=== PATIENT | female | born 1955 | race Caucasian/White ===

== ENCOUNTER 2020-08-18 15:36 | Inpatient (IN) | payer OTHER ==
[~2020-08-18] VITALS: Ht 162.6 cm; Wt 111.1 kg
--- NOTE | ~2020-08-18 | EMS ---
[facility] [address] [place] [address] EMS Patient Care Report Name: HUA ROTHMAN Room #: REG FILIBERTO Cason#: [id number] Admission: 08/18/20 Attend Phys: Discharge: Date of : 53 Report #: [id number] THIS REPORT FOR: //name// Report Transmitted: 08/18/2020 16:05 EMS Care Summary [facility] MED-ACT Incident [id number] @ 08/18/2020 15:00 Incident Location [id number] [place] [address] Patient HUA ROTHMAN Female, 65 Years 1955 [address] [facility] Marilee Lockhart [address] [place] [id number] Patient History Diabetes,Hypertension (HTN),TIA, Patient Allergies No known allergies, Patient Medications Unknown, Chief Complaint Aphasia Disposition Transported No Lights/[place] Dispatch Reason Heat/Cold Exposure Transported To [facility] Narrative History- Pt is found sitting in a chair in the office of [employer] talking with [employer] and does not appear to be in any distress. S47 states that they just arrived on scene but the pt is having a hard time gathering her [facility] [address] [place] [address] EMS Patient Care Report Name: HUA ROTHMAN Room #: REG FILIBERTO Cason#: [id number] Admission: 08/18/20 Attend Phys: Discharge: Date of : 53 Report #: [id number] thoughts and expressing what she wants to say. Pt states that she knows where she is but is unable to say the name of the place or what they sell. She becomes increasingly frustrated that she is unable to say what she wants. Pt is able to complete the stroke scale with no issues but due to the pt's aphasia a code stroke is called anyways. Pt is unable to tell us anything about her medical history or what hospital she usually goes to but knows the hospital is on [address] When [facility] is mentioned she states yes that's it. Pt is aware that she is having trouble and states that it started when she arrived at the store. The employees state that they noticed the pt not acting correctly when shortly after she arrived and called 911. Pt denies any pain or other complaints and agrees to go to [facility] since that is the closest hospital. Treatment- Vitals. 12 lead. IV. Pt is transported to [facility] and is taken directly to CT. Report given to the RN and Initial Vitals @15:20MI Suspected: false @15:33P: 99,R: 16,BP: 179/90,GCS: 15,Revised Trauma: 12, @15:22P: 91,R: 16,BP: 166/103,Pain: 0/10,GCS: 15,Temp: 97.5F,Glucose: 296,SpO2: 99,Revised Trauma: 12, Assessments @15:20MENTAL:Confused,Person Oriented,Time Oriented,Event Oriented,SKIN:HEENT:Eyes: Left Pupil: 4-mm,Eyes: Right Pupil: 4-mm,Head/Face: No Abnormalities,Neck/Airway: No Abnormalities,LUNG SOUNDS:General: No Abnormalities,ABDOMEN:General: No Abnormalities,PELVIS//GI:EXTREMITIES:Left Arm: Other,Right Arm: No Abnormalities,Left Leg: No Abnormalities,Right Leg: No Abnormalities,PULSE:Radial: 2+ Normal,NEURO:Other, Impression Stroke Procedures @15:25Saline Lock 10cc (20 ga) Site: Radial-LeftResponse: UnchangedSucceeded@15:2012-Lead ECGResponse: UnchangedSucceeded@15:20Saline Lock 0cc (20 ga) Site: Hand-RightResponse: UnchangedFailed Timeline 14:58,Call Received 14:58,Psap Call 15:00,Dispatched 15:00,En Route 15:06,On Scene 15:08,At Patient 15:20,Saline Lock 0cc 20 ga Site: Hand-Right,Response: UnchangedFailed, 15:20,12-Lead ECG,Response: UnchangedSucceeded, [place] [address] EMS Patient Care Report Name: HUA ROTHMAN Room #: CHI Cason#: [id number] Admission: 08/18/20 Attend Phys: Discharge: Date of : 53 Report #: [id number] 15:20,BP: / M,PULSE: ,RR: R,SPO2: Ox,ETCO2: ,BG: ,PAIN: ,GCS: , 15:22,BP: 166/103 M,PULSE: 91,RR: 16 R,SPO2: 99 Ox,ETCO2: ,B,PAIN: 0,GCS: 15, 15:25,Saline Lock 10cc 20 ga Site: Radial-Left,Response: UnchangedSucceeded, 15:26,Depart Scene 15:32,At Destination 15:33,BP: 179/90 M,PULSE: 99,RR: 16 R,SPO2: Ox,ETCO2: ,BG: ,PAIN: ,GCS: 15, 16:03,Call Closed Disclaimer v1.1 Copyright 2020 [employer] This EMS Care Summary contains data elements from the applicable legal record (which may be displayed differently). It is designed to provide pertinent information for the following purposes: continuity of care, clinical quality, and state data reporting. The complete legal record is available to ED staff and administrators of the receiving hospital in [employer]'s Patient Tracker. All data is provided "as is."
[2020-08-18 15:44] VITALS: BP 173/99
[2020-08-18 16:07] LABS: ABSOLUTE NEUTROPHILS 5.1 thou/uL (1.4-8.2); BASOPHILS 0.8 % (0.0-2.0); EOSINOPHILS 1.2 % (0.0-3.0); HEMATOCRIT 41.8 % (37.0-47.0); HEMOGLOBIN 13.7 gm/dL (12.0-15.0); LYMPHOCYTES 19.4 % (24.0-44.0); MCH 27.5 pg (26.0-34.0); MCHC 32.8 g/dL (28.0-37.0); MCV 83.8 fL (80.0-100.0); MONOCYTES 6.8 % (1.0-8.0); PLATELET COUNT 252 thou/uL (150-400); POLYS 71.8 % (36.0-66.0); RBC 4.99 mil/uL (4.20-5.00); RDW 14.1 % (10.5-14.5); WBC 7.2 thou/uL (4.0-11.0)
--- NOTE | 2020-08-18 16:15 | NUR ---
WENT TO BEDSIDE TO EXPLAIN TO THE PT THAT FOR THIS PARTICULAR CT WE HAD TO HAVE AN IV IN THE BEND OF THE ARM OR HIGHER. PT FRUSTRATED BY THIS AND ASKS HOW LONG IT WILL HAVE TO STAY IN PLACE. THIS RN EXPLAINED TO PT THAT IT WOULD BE IN PLACE FOR HER ED STAY AT THE MINIMUM INCASE MORE TESTING WAS NEEDED AND OR CERTAIN MEDICAITONS THAT COULD ONLY BE GIVEN SOLO. PT STATES "I CANT HAVE THIS IN MY ARM THAT LONG"
[2020-08-18 16:19] LABS: ANION GAP 8 mmol/L (7-16); BUN 13 mg/dL (7-18); CALCIUM 9.2 mg/dL (8.5-10.1); CHLORIDE 103 mmol/L (98-107); CO2 27 mmol/L (21-32); CREATININE 1.4 mg/dL (0.6-1.0); GLUCOSE 310 mg/dL (74-106); POTASSIUM 3.9 mmol/L (3.5-5.1); SODIUM 138 mmol/L (136-145)
[2020-08-18 16:29] LABS: ALBUMIN 3.5 g/dL (3.4-5.0); SGOT 21 U/L (15-37); SGPT 24 U/L (14-59); TOTAL BILIRUBIN 0.6 mg/dL (0.2-1.0); TROPONIN-I <0.06 ng/mL (<0.06)
--- NOTE | 2020-08-18 16:31 | NUR ---
PT REQUESTING TO USE THE RESTROOM. THIS RN EXPLAINED TO THE PT THAT WITH STROKE LIKE S/S IT IS NOT SAFE TO WALK TO THE RESTROOM UNTIL WE GET RESULTS BACK. PT GETTING INCREASINGLY AGITATED. THIS RN APOLOGIZED AND EXPLAINED IT WAS FOR HER SAFETY.
--- NOTE | 2020-08-18 16:45 | NUR ---
PT IN CT
--- NOTE | 2020-08-18 17:28 | NUR ---
NEUROLOGIST AT BEDSIDE
[2020-08-18 18:54] VITALS: BP 167/89
[2020-08-18 18:55] VITALS: BP 167/89
--- NOTE | 2020-08-18 19:20 | NUR ---
UNABLE TO GET AHOLD OF THE CCU. REPORT GIVEN TO CATHLEEN SYED AT THIS TIME
[2020-08-18 19:36] VITALS: BP 167/88
[2020-08-18 20:00] VITALS: BP 161/100
[2020-08-18 20:01] LABS: URINE BILIRUBIN NEGATIVE (Negative); URINE BLOOD NEGATIVE (Negative); URINE CLARITY CLEAR; URINE COLOR YELLOW; URINE GLUCOSE-RANDOM* NEGATIVE (Negative); URINE KETONES NEGATIVE (Negative); URINE LEUKOCYTES-REFLEX NEGATIVE (Negative); URINE NITRITE-REFLEX NEGATIVE (Negative); URINE PROTEIN (DIPSTICK) NEGATIVE (Negative); URINE SPECIFIC GRAVITY <= 1.005 (1.005-1.035); URINE UROBILINOGEN 0.2 E.U./dl (0.2-1.0)
[2020-08-18] MEDS ORDERED: ASA81BEC PO (23:21)
[2020-08-19] VITALS (8 sets, daily range): BP systolic 113–179; BP diastolic 79–97
--- NOTE | 2020-08-19 03:12 | NUR ---
PT ADMITTED TO ROOM TO 205 FROM ER, ASSESSMENTS CHARTED, C/O RENTERIA AND GIVEN TYLENOL, HAS BEEN SLEEPING IN ROOM WITH OUT ANY DIFFICULTY, EDUCATION DONE WITH PT ON DISCHARGE, MEDICATION, CONSULTS AND MRI ORDERED FOR AM, PT WITH OT ANY FURTHER QUESTIONS, EXTERNAL INSULIN PUMP REMOVED BY PT SHE STATED IT WAS EMPTY AND NEEDED REPLACING, REMINDED PT SHE WOULD BE ON A SS, PT STATES SHE HAS SOME EQUIPMENT THAT SHE USES DAILY TO HELP WITH L EFT HAND REHAB FROM [place], STATES SHE HAS STARTED USING A CANE RECENTLY FOR WEAKNESS IN HER LOWER EXTREMITIES, HAS HISTORY OF CVA AND TIA WITH SOME MEMORY ISSUES, SWALLOW EVAL COMPLETED NO DIFFICULTY NOTED. BP REMAINS ELEVATED WHICH PT STATES IS HER NORMAL AT HOME, NORVASC GIVEN, WILL CON'T TO MONITOR PER PROTOCOL.
[2020-08-19 05:22] LABS: CALCIUM 9.1 mg/dL (8.5-10.1); CREATININE 1.2 mg/dL (0.6-1.0); POTASSIUM 3.5 mmol/L (3.5-5.1)
[2020-08-19 05:26] LABS: HEMATOCRIT 40.7 % (37.0-47.0); HEMOGLOBIN 13.5 gm/dL (12.0-15.0); MCHC 33.2 g/dL (28.0-37.0); MCV 84.3 fL (80.0-100.0); RBC 4.83 mil/uL (4.20-5.00); RDW 14.2 % (10.5-14.5); WBC 5.9 thou/uL (4.0-11.0)
--- NOTE | 2020-08-19 09:04 | EKG ---
[address] [address] ELECTROCARDIOGRAM REPORT Name: HUA ROTHMAN Room #: 205- ADM IN M.R.#: [id number] Admission: 08/18/20 Attend Phys: Paulo Covarrubias MD Discharge: Date of : 53 Report #: [id number] [facility] ED Test Date: 2020-08-18 Test Time: 16:00:32 Pat Name: HUA ROTHMAN Department: Room: 205 Gender: F Oxygen Therapy Teacher: unknown : 1955 Requested By: Maddie Christiansen Order Number: [id number] MD: Zak Napier Measurements Intervals Clarence Rate: 85 P: 40 OK: 151 QRS: 14 QRSD: 88 T: 50 QT: 376 QTc: 447 Interpretive Statements Sinus rhythm No significant abnormality No previous ECG available for comparison Electronically Signed On 08-19-2020 9:04:15 CDT by Zak Napier [email or web address] <ELECTRONICALLY SIGNED> By: Zak Napier MD, [facility] 08/19/20 0904 [address] [facility] Zak Napier MD, FACC /EPI
--- NOTE | 2020-08-19 11:21 | NUR ---
Case discussed with the care team and chart reveiwed. Neuro workup in progress. Therapy evals note pt functionally indep and at baseline. Uses a cane and lives in ground floor apt alone. No cm interventions indicated at this time. Weekend dc anticipated.
--- NOTE | 2020-08-19 15:01 | NUR ---
PT WITH INTERMITTENT CONFUSION. VERY FORGETFUL. PRN PAIN MED GIVEN FOR RENTERIA WITH PARTIAL RELEIF. VSS. HAD MRI THIS AM. SR/ST ON TELE. NO CONCERNS AT THIS TIME.
--- NOTE | 2020-08-19 16:01 | NUR ---
Case opened to follow for dc planning. Sub Arc Operator visited with the pt at bedside. She was alert and oriented x2-3. She had difficulty answering assessment questions and seemed suspicious of me. She could not tell me how often she sees her pcp Dr.Christopher Palencia. She said she drives and is indep but can not tell me how she gets groceries or meals. She states her sister Ruth is her primary emergency contact. The pt asked who I was multiple times. STM appears impaired. ST hernandez noted with concerns about pt living alone, driving and managing her own medications. Pt's sister Ruth was here this afternoon. She confirmed that the pt lives on her own,drives and manages her own medications. She is secretive and does not let family into her apt. Ruth does check on her often and they had convinced her to move into a correction community for more support. She has a contract pending with [facility] living to move in October 16. Ruth advised of above concerns. Ruth believes their niece Amelia Mejía has dpoa for healthcare if needed. She will talk with the pt and Amelia about seeing if she can move into [facility] sooner. She is aware that the pt should not be driving and may need to be hotlined if dc'd to home alone. The pt refuses HH and does not want anyone in her apt. Neuro f/u visit anticipated this evening. MRI results pending. PT/OT evaluated the pt and she is doing well functionally from a gait and adl perspective. Ruth will also talk with the pt about not driving and maybe coming to stay with her for a while as an option. Support provided. Awaiting neuro imput.
[2020-08-19] MEDS ORDERED: HYDROCHLOROTHIA25 M1 PO (16:07)
[2020-08-19] MEDS ORDERED: PLAVIX 75 MG TA75 MG PO (16:08)
[2020-08-19] MEDS ORDERED: CRESTOR40 MG PO (16:08)
[2020-08-19] MEDS ORDERED: TOPROL XL100 MG PO (16:08)
[2020-08-19] MEDS ORDERED: APIDRA (16:11)
[2020-08-19] MEDS ORDERED: LEVOTHYROXINE112 MCG PO (16:11)
[2020-08-20 03:22] VITALS: BP 143/94
[2020-08-20 03:41] LABS: HEMATOCRIT 41.2 % (37.0-47.0); HEMOGLOBIN 13.8 gm/dL (12.0-15.0); MCH 27.9 pg (26.0-34.0); MCHC 33.4 g/dL (28.0-37.0); MCV 83.7 fL (80.0-100.0); RBC 4.93 mil/uL (4.20-5.00); RDW 14.3 % (10.5-14.5); WBC 4.8 thou/uL (4.0-11.0)
[2020-08-20 03:54] LABS: CALCIUM 8.7 mg/dL (8.5-10.1); CREATININE 1.2 mg/dL (0.6-1.0); POTASSIUM 3.4 mmol/L (3.5-5.1)
[2020-08-20 07:45] VITALS: BP 110/81
[2020-08-20 08:06] VITALS: BP 110/81
[2020-08-20] MEDS ORDERED: NORVASC5 MG PO (10:41)
--- NOTE | 2020-08-25 14:16 | HC ---
[facility] [place] [address] CONSULTATION Name: HUA ROTHMAN Room #: 205-P [facility] IN M.R.#: [id number] Admission: 08/18/20 Attend Phys: Paulo Covarrubias MD Discharge: 08/20/20 Date of : 53 Report #: [id number] THIS REPORT FOR: cc: FAM - Family physician unknown FAM - Family physician unknown Benny Roberson MD ~ DOC #: [id number] Benny Roberson MD DATE OF SERVICE: 08/18/2020 HISTORY OF PRESENT ILLNESS: This 65-year-old female patient who was evaluated by me in the emergency room at the request of Dr. Christiansen. I talked to her multiple times on the phone. This patient was admitted with some confusion. She may have had some speech difficulty that time. She usually goes to [facility], but the ambulance brought here. Her confusion mostly has resolved. When I take the further history, the sister says that the patient had stroke. Stroke was about 2 years ago. History surrounding that stroke is poor, but she lost some memory and she had another episode like this about a year ago and they said it was vasospasm. REVIEW OF SYSTEMS: Positive for migraine in the past, but she has not had migraine for some time. She is diabetic and hypertensive, but she does not think her blood pressure goes low very often. Blood pressure does stay high and it was significantly high in the emergency room and continued to be high. REVIEW OF SYSTEMS: 14-point review of system was otherwise noncontributory. She has memory issues. She does not have any eye, ENT, cardiac, respiratory, GI, , musculoskeletal, constitutional, dermatological, hematological, psychiatric, throat symptom associated with present symptomatology. She does not think she has trouble with anxiety. PAST MEDICAL HISTORY: Positive for TIA and stroke as I understand. FAMILY HISTORY: Unremarkable. SOCIAL HISTORY: She had a sister with her who provided me most of the history as she does appear to have a memory issue. NEUROLOGIC: She is alert. She is responsive. She knows what month it is. When I asked her who the president is, she was able to name. When I asked her who was the one before, she said she can describe him and she did, but could not name him. Cranial nerve examination II-XII looks mostly unremarkable. Neuromuscular examination as checked for strength, sensation, reflexes and tone is symmetrical. There is no cerebellar sign. I could not look at the fundus. [address] [address] CONSULTATION Name: HUA ROTHMAN Room #: [facility]#: [id number] Admission: 08/18/20 Attend Phys: Paulo Covarrubias MD Discharge: 08/20/20 Date of : 53 Report #: [id number] There is no meningeal sign. PHYSICAL EXAMINATION: VITAL SIGNS: Her blood pressure is running about 190. CARDIAC: Unremarkable. No respiratory difficulty. GENERAL: She is obese, but does not have any edema, cyanosis or jaundice. DIAGNOSTIC DATA: Her CT angiogram was reviewed, which showed mild stenosis of the right carotid. The patient is right handed. Source an incidental finding. No records from [facility] is available. IMPRESSION: The patient was pretty adamant that she would like to go to [facility]. I was informed later on by Dr. Christiansen that there is no bed in [facility]. I believe this patient should be admitted. She possibly has hypertensive encephalopathy. Her blood pressure can be cautiously lowered over a period of time. [facility] records need to be reviewed. She needs an MRI of the brain. Further management will depend upon what we find. I will suggest starting her on aspirin for the time being. I spent more than 50 minutes of time taking care of this patient today and majority was spent in counseling and coordinating care. Please put a consult for us if she stays here and if the admitting physician want us to continue to follow this patient. Benny Roberson MD PK/GUNNER <ELECTRONICALLY SIGNED> By: Benny Roberson MD 08/25/20 1416 1757 2319 Benny Roberson MD /nt
--- NOTE | 2020-08-25 14:17 | EEG ---
[facility] [place] [address] ELECTROENCEPHALOGRAM Name: HUA ROTHMAN Room #: 205-P [facility] IN M.R.#: [id number] Admission: 08/18/20 Attend Phys: Paulo Covarrubias MD Discharge: 08/20/20 Date of : 53 Report #: [id number] THIS REPORT FOR: //name// DOC #: [id number] Benny Roberson MD This patient is complaining of altered mental status which appeared to be episodic. EEG was done by placing the electrode by standard 10-20 system of electrode placement. Both referential and sequential montages were used for recording. Background activity in this patient's EEG is about 10 Hz and 30 microvolt. The patient became drowsy and that is associated with bilateral slowing and vertex sharp waves. Photic stimulation is unremarkable. Throughout the record, no active epileptiform activity was noticed. IMPRESSION: This patient's EEG is unremarkable. Thank you very much for this referral. Benny Roberson MD PK/XAVI <ELECTRONICALLY SIGNED> By: Benny Roberson MD 08/25/20 1417 1849 09 Benny Roberson MD /nt
--- NOTE | 2020-08-25 14:17 | EEG ---
[facility] [place] [address] ELECTROENCEPHALOGRAM Name: HUA ROTHMAN Room #: 205-P [facility] IN M.R.#: [id number] Admission: 08/18/20 Attend Phys: Paulo Covarrubias MD Discharge: 08/20/20 Date of : 53 Report #: [id number] THIS REPORT FOR: //name// DOC #: [id number] Benny Roberson MD DATE OF SERVICE: 08/19/2020 This patient is being evaluated for episodes of confusion. EEG was done by placing the electrode by standard 10-20 system of electrode placement. Both referential and sequential montages were used for recording. Background activity in this patient's EEG is about 10 Hz and 30 microvolt. This is a symmetrical activity. Photic stimulation is unremarkable. Throughout the record, no active epileptiform activity was noticed. The patient became drowsy and that is associated with bilateral slowing and vertex sharp waves. IMPRESSION: This patient's EEG is unremarkable. Benny Roberson MD PK/XAVI <ELECTRONICALLY SIGNED> By: Benny Roberson MD 08/25/20 1417 0531 0544 Benny Roberson MD /nt
== END 2020-08-20 13:12 | disposition home or self-care (01) | DRG 64 ==
LOC: ER 15:36 → 2N 18:57 → EROBS 18:57 → 2N 19:54
PROVIDERS: Emergency Medicine; Psychiatry & Neurology Neuromuscular Medicine; ADMIT Hospitalist; ATTEND Hospitalist
DX: I63.9 Cerebral infarction, unspecified (principal); G93.41 Metabolic encephalopathy; I16.0 Hypertensive urgency; E11.65 Type 2 diabetes mellitus with hyperglycemia; E78.5 Hyperlipidemia, unspecified; E03.9 Hypothyroidism, unspecified; Z79.01 Long term (current) use of anticoagulants; Z79.82 Long term (current) use of aspirin; Z79.899 Other long term (current) drug therapy; Z79.4 Long term (current) use of insulin; Z88.0 Allergy status to penicillin; I69.322 Dysarthria following cerebral infarction
CPT/HCPCS: 10194